=== PATIENT | female | born 1995 ===

== ENCOUNTER 2018-09-08 03:12 | Emergency (ER) | payer SELFPAY ==
[2018-09-08 04:23] VITALS: BP 99/53
--- NOTE | 2018-09-08 05:01 | EDPHY ---
H & P Stated Complaint: Combative, ETOH, from [facility], Source: Patient, EMS Exam Limitations: Intoxication - Personal History LMP (Females 10-55): Unknown Current Tetanus Diphtheria and Acellular Pertussis (TDAP): Unsure - Medical/Surgical History Hx Asthma: No Hx Chronic Respiratory Disease: No Hx Diabetes: No Hx Cardiac Disease: No Hx Renal Disease: No Hx Cirrhosis: No Hx Alcoholism: No Hx HIV/AIDS: No Hx Splenectomy or Spleen Trauma: No Other PMH: unknown - Social History Smoking Status: Unknown if ever smoked Time Seen by Provider: 09/08/18 03:15 HPI/ROS: CHIEF COMPLAINT: Alcohol intoxication HISTORY OF PRESENT ILLNESS: Patient was found by bystanders on the [facility] [address] to be severely intoxicated and therefore they called EMS system. Patient denies any injuries, denies loss of consciousness, denies any recent trauma. Patient denies coingestion, patient denies suicidal or homicidal behavior. She became agitated in the ambulance and required restraints as well as Versed 5 mg IM. She is now calm and cooperative REVIEW OF SYSTEMS: 10 systems were reviewed and negative with the exception of the elements mentioned in the history of present illness. 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 Head: Atraumatic without scalp tenderness or obvious injury Eyes: Pupils equal, round, reactive to light, no injection. Ears: Clear bilaterally, no perforation, normal landmarks Nose: Atraumatic, no rhinorrhea, clear. Throat: mucus membranes moist. Neck: Supple, non-tender, no lymphadenopathy. Respiratory: No retractions, no distress, no wheezes, and no accessory muscle use. Lungs are clear to auscultation bilaterally. Cardiovascular: Regular rate and rhythm, no murmurs, rubs, or gallops. Gastrointestinal: Abdomen is soft, non-tender, non-distended Musculoskeletal: Normal active ROM of all extremities, atraumatic. Neurological: Alert, appropriate, and interactive. Moves all extremities equally. Skin: No rashes, good turgor, no nodules on palpation. MEDICAL DECISION MAKING: I serially examined this patient since the patient's arrival here in the emergency department. She was very sedate and seemingly intoxicated for much of her stay here. At approximately 6:15 a.m. When nurse went to check on her she was more awake and alert and could not locate her telephone. This made her very distressed and she became quite upset yelling, screaming, kicking and escalating. She was transferred to a different room in the psychiatric unit of our emergency department. She was given additional Versed 5 mg IM for sedation because she was kicking and swinging at our staff. She is still on the M1 hold that she was brought in on. As I have ordered basic labs. We were able to reach a friend who does report that she has a somewhat volatile I will personality. The friend will come to the emergency department. I anticipate at 7:00 a.m. The case will be signed out to the oncoming provider Dr. Real. (Rubina Duran) 0700: I assumed care of this patient from Dr. Velez at shift change. 0730: Reassessed this patient. She is verbally abusive to myself and the ED staff. She is clinically sober and safe to be discharged. Security will escort this patient out of the department to the waiting room and call her a cab. 0757: This patient refuses to leave the hospital and is still verbally abusive. The police will be called to escort this patient from the hospital property. (Florentino Real) Constitutional: Initial Vital Signs Temperature (C) 36.5 C 09/08/18 03:10 Heart Rate 95 09/08/18 03:10 Respiratory Rate 18 09/08/18 03:10 Blood Pressure 116/71 09/08/18 03:10 O2 Sat (%) 97 09/08/18 03:10 O2 Delivery Mode Room Air Allergies/Adverse Reactions: No Known Allergies Allergy (Unverified 09/08/18 06:58) - Data Points Medications Given: Discontinued Medications Midazolam HCl (Versed) 5 mg IM EDNOW ONE Stop: 09/08/18 06:16 Last Admin: 09/08/18 06:15 Dose: 5 mg Departure - Departure Disposition: Home, Routine, Self-Care Clinical Impression: Alcohol intoxication delirium, Aggressive behavior Condition: Good Instructions: Alcohol Intoxication (ED) Additional Instructions: Please refrain from abusing alcohol. Return to the emergency department immediately for fever, vomiting, confusion, headache, abdominal pain or other worsening of condition. Followup with your primary care physician within 72 hours for reevaluation. Referrals: [facility] [Clinic] - As per Instructions
[2018-09-08] MEDS ORDERED: MIDAZOLAM 10 MG/2 ML VIAL IM ONE (06:15)
[2018-09-08] MEDS ORDERED: MIDAZOLAM 10 MG/2 ML VIAL ONE (06:15)
== END 2018-09-08 07:46 | disposition home or self-care (01) ==
DX: F10.921 Alcohol use, unspecified with intoxication delirium (principal); R45.6 Violent behavior
CPT/HCPCS: J2250